=== PATIENT | male | born 1965 | race Caucasian/White ===

== ENCOUNTER → 2017-01-31 | Outpatient (CLI) | payer MEDICARE, MEDICAID ==
[~2017-01-31] MED LIST: COR3 PO; DIABETES MEDS; ENAL2.5T39 PO; GEMF600T3 PO; LISI-186 PO; LOSA1TAB34 PO; METF-816 PO; Metolazone PO; OMEP20CA10 PO; SIMV10TA6 PO; TRAM50TA3 PO; [UNRECOGNIZED DRUG - OTHER]
[2017-01-31 11:45] LABS: CARBON DIOXIDE 26 mEq/L (21-32); CHLORIDE 103 mEq/L (98-107)
== END | disposition home or self-care (01) ==
LOC: LAB 11:05
PROVIDERS: ATTEND Specialist
DX: E78.2 Mixed hyperlipidemia (principal)
CPT/HCPCS: 36415; 80053

== ENCOUNTER → 2019-07-02 | Outpatient (CLI) | payer MEDICARE, MEDICAID ==
[~2019-07-02] MED LIST changes: -GEMF600T3 PO; +GEMF600T5 PO; -OMEP20CA10 PO; +OMEP20CA5 PO
== END | disposition home or self-care (01) ==
LOC: US 10:39
PROVIDERS: ATTEND Internal Medicine Nephrology
DX: I12.0 Hypertensive chronic kidney disease with stage 5 chronic kidney disease or end stage renal disease (principal); E11.22 Type 2 diabetes mellitus with diabetic chronic kidney disease; N18.5 Chronic kidney disease, stage 5
CPT/HCPCS: 76770

== ENCOUNTER 2021-02-08 10:22 | Inpatient (IN) | payer MEDICARE, MEDICAID ==
[~2021-02-08] VITALS: Ht 165.1 cm; Wt 74.9 kg
[~2021-02-08 10:22] MED LIST changes: -GEMF600T5 PO; +GEMF600T90 PO; -METF-816 PO; +METF-874 PO; +OMEP20CA14 PO; -OMEP20CA5 PO; -SIMV10TA6 PO; +SIMV10TA97 PO
[2021-02-08 11:19] LABS: BASOPHILS % 1.1 % (0.0-2.0); EOSINOPHILS % 2.1 % (0.0-5.0); HEMATOCRIT. 29.1 % (42.0-52.0); HEMOGLOBIN. 9.5 g/dL (14.0-18.0); LYMPHOCYTES % 15.6 % (20.0-50.0); MEAN CORPUSCULAR VOLUME 100.7 fL (80.0-94.0); MONOCYTES % 9.8 % (2.0-8.0); NEUTROPHILS % 71.4 % (40.0-76.0); PLATELET 135 x1000/uL (130-400); RED BLOOD CELL COUNT 2.89 mill/uL (4.7-6.1); RED CELL DISTRIBUTION WIDTH 15.7 % (11.6-14.6)
[2021-02-08 11:26] LABS: CHLORIDE 109 mEq/L (98-107)
[2021-02-08] MEDS ORDERED: FUROSEMIDE 100MG/10ML VIAL IV STA (11:52)
[2021-02-08] MEDS ORDERED: DEXTROSE 50% WATER 50ML SYRINGE IV ONE (12:00)
[2021-02-08] MEDS ORDERED: INSULIN REGULAR (HUMULIN R) 300UNITS/3ML VIAL IV ONE (12:00)
[2021-02-08] MEDS ORDERED: ALBUTEROL (0.083%) 2.5MG/3ML NEB HHN ONE (12:00)
[2021-02-08] MEDS ORDERED: SODIUM BICARBONATE 8.4% 1 MEQ/ML 50ML SYR IV ONE (12:00)
[2021-02-08] MEDS ORDERED: CALCIUM CHLORIDE 1GM/10ML SYR IV ONE (12:00)
[2021-02-08] MEDS ORDERED: DEXTROSE 50% WATER 50ML SYRINGE IV PRN (13:00)
[2021-02-08] MEDS: INSULIN LISPRO 100 UNITS/ML SUBCUT SCH ×3 (13:20→21:00)
[2021-02-08 13:50] LABS: INR 3.8; PROTHROMBIN TIME 36.3 sec (9.6-11.0)
[2021-02-08] MEDS: BLOOD SUGAR DIAGNOSTIC STRIP TEST SCH ×3 (13:50→21:27)
[2021-02-08 15:11] LABS: HEPATITIS B SURFACE ANTIGEN NEGATIVE
[2021-02-08 15:41] LABS: HEPATITIS A AB IGM NEGATIVE (NEGATIVE)
[2021-02-08] MEDS ORDERED: CLONIDINE 0.1MG TABLET PO PRN (17:30)
[2021-02-08] MEDS ORDERED: IPRATROPIUM/ALBUTEROL 0.5-3(2.5)MG/3ML NEB HHN PRN (17:30)
[2021-02-08] MEDS ORDERED: ACETAMINOPHEN 325MG TABLET PO PRN (17:30)
[2021-02-08] MEDS ORDERED: DOCUSATE SODIUM 100MG CAPSULE PO PRN (17:30)
[2021-02-08] MEDS ORDERED: ONDANSETRON HCL 4MG/2ML INJ IV PRN (17:30)
[2021-02-08] MEDS ORDERED: MAGNESIUM/ALUMINUM HYDROXIDE/SIMETHICONE 30ML UDC PO PRN (17:30)
[2021-02-08] MEDS ORDERED: HYDROCODONE/ACETAMINOPHEN 5/325MG TABLET PO PRN (17:30)
[2021-02-08] MEDS: FUROSEMIDE 40MG/4ML VIAL IVP SCH (18:54)
[2021-02-08] MEDS ORDERED: SACUBITRIL/VALSARTAN 49MG/51MG TABLET PO SCH (21:00)
[2021-02-08] MEDS: ATORVASTATIN CALCIUM 40MG TABLET PO SCH (21:26)
[2021-02-08] MEDS: CARVEDILOL 3.125 MG TABLET PO SCH (21:26)
[2021-02-08] MEDS ORDERED: NALOXONE HCL 0.4MG/ML VIAL IV PRN (22:30)
[2021-02-09] VITALS (12 sets, daily range): BP systolic 87–126; BP diastolic 45–76
[2021-02-09] MEDS: OMEPRAZOLE 20MG CAPSULE EXTENDED RELEASE PO SCH (06:43)
[2021-02-09] MEDS: LEVOTHYROXINE SODIUM 25MCG TABLET PO SCH (06:43)
[2021-02-09] MEDS: BLOOD SUGAR DIAGNOSTIC STRIP TEST SCH ×4 (07:30→21:51)
[2021-02-09 07:34] LABS: BASOPHILS % 1.1 % (0.0-2.0); EOSINOPHILS % 1.8 % (0.0-5.0); HEMATOCRIT. 26.6 % (42.0-52.0); MEAN CORPUSCULAR HEMOGLOBIN 32.8 pg (28.0-32.0); MEAN CORPUSCULAR VOLUME 96.9 fL (80.0-94.0); MEAN PLATELET VOLUME 9.6 fl (7.4-10.4); MONOCYTES % 11.1 % (2.0-8.0); PLATELET 125 x1000/uL (130-400); RED BLOOD CELL COUNT 2.75 mill/uL (4.7-6.1); RED CELL DISTRIBUTION WIDTH 15.3 % (11.6-14.6)
[2021-02-09 07:41] LABS: INR 3.9; PROTHROMBIN TIME 37.2 sec (9.6-11.0)
[2021-02-09] MEDS: INSULIN LISPRO 100 UNITS/ML SUBCUT SCH ×4 (08:00→21:51)
[2021-02-09 08:04] LABS: PHOSPHORUS 2.4 mg/dL (2.5-4.9)
[2021-02-09 08:07] LABS: T4 FREE 1.47 ng/dL (0.76-1.46)
[2021-02-09] MEDS: CARVEDILOL 3.125 MG TABLET PO SCH ×2 (09:00→21:00)
[2021-02-09] MEDS: ASPIRIN 81MG TABLET PO SCH (09:41)
[2021-02-09] MEDS: FUROSEMIDE 40MG/4ML VIAL IVP SCH ×2 (09:43→18:02)
[2021-02-09] MEDS ORDERED: POTASSIUM PHOS,M-BASIC-D-BASIC 15 MMOL in DEXT 5% WATER 245 ML IV NR (12:30)
[2021-02-09] MEDS ORDERED: DORZ10DR12 EACHEYE (18:16)
[2021-02-09] MEDS ORDERED: ASPI-1497 PO (18:16)
[2021-02-09] MEDS ORDERED: REPA1TAB5 PO (18:16)
[2021-02-09] MEDS ORDERED: FURO-151 PO (18:16)
[2021-02-09] MEDS ORDERED: PATI8.4P PO (18:16)
[2021-02-09] MEDS ORDERED: ATOR20TA65 PO (18:16)
[2021-02-09] MEDS ORDERED: TAMS-11 PO (18:16)
[2021-02-09] MEDS ORDERED: SACU1TAB4 PO (18:16)
[2021-02-09] MEDS ORDERED: WARF-67 PO (18:16)
[2021-02-09] MEDS ORDERED: LEVO25TA7 PO (18:16)
[2021-02-09] MEDS ORDERED: OMEP40CA12 PO (18:16)
[2021-02-09] MEDS ORDERED: DUTA0.5C37 PO (18:16)
[2021-02-09] MEDS ORDERED: INSU100I24 SQ (18:16)
[2021-02-09] MEDS ORDERED: COR3 PO (18:16)
[2021-02-09] MEDS: ATORVASTATIN CALCIUM 40MG TABLET PO SCH (21:49)
[2021-02-10] VITALS (10 sets, daily range): BP systolic 72–137; BP diastolic 45–82
[2021-02-10 05:47] LABS: BASOPHILS % 1.1 % (0.0-2.0); EOSINOPHILS % 3.1 % (0.0-5.0); HEMATOCRIT. 26.8 % (42.0-52.0); HEMOGLOBIN. 8.9 g/dL (14.0-18.0); INR 2.8; LYMPHOCYTES % 22.1 % (20.0-50.0); MEAN CORPUSCULAR HEMOGLOBIN 32.6 pg (28.0-32.0); MEAN PLATELET VOLUME 10.1 fl (7.4-10.4); MONOCYTES % 14.2 % (2.0-8.0); NEUTROPHILS % 59.5 % (40.0-76.0); PLATELET 125 x1000/uL (130-400); PROTHROMBIN TIME 28.1 sec (9.6-11.0); RED BLOOD CELL COUNT 2.73 mill/uL (4.7-6.1); RED CELL DISTRIBUTION WIDTH 15.6 % (11.6-14.6)
[2021-02-10] MEDS: INSULIN LISPRO 100 UNITS/ML SUBCUT SCH ×4 (08:00→20:32)
[2021-02-10] MEDS: BLOOD SUGAR DIAGNOSTIC STRIP TEST SCH ×4 (08:09→20:32)
[2021-02-10] MEDS: OMEPRAZOLE 20MG CAPSULE EXTENDED RELEASE PO SCH (08:10)
[2021-02-10] MEDS: ASPIRIN 81MG TABLET PO SCH (08:10)
[2021-02-10] MEDS: LEVOTHYROXINE SODIUM 25MCG TABLET PO SCH (08:10)
[2021-02-10] MEDS: CARVEDILOL 3.125 MG TABLET PO SCH ×2 (08:10→20:32)
[2021-02-10] MEDS: FUROSEMIDE 40MG/4ML VIAL IVP SCH (08:10)
[2021-02-10] MEDS ORDERED: WARFARIN SODIUM 2MG TABLET PO SCH (18:00)
[2021-02-10] MEDS: ATORVASTATIN CALCIUM 40MG TABLET PO SCH (20:31)
[2021-02-11] VITALS (17 sets, daily range): BP systolic 96–143; BP diastolic 67–94
[2021-02-11 07:13] LABS: INR 1.7; PROTHROMBIN TIME 17.5 sec (9.6-11.0)
[2021-02-11 07:22] LABS: BASOPHILS % 0.9 % (0.0-2.0); HEMATOCRIT. 25.8 % (42.0-52.0); HEMOGLOBIN. 8.6 g/dL (14.0-18.0); MEAN CORPUSCULAR HEMOGLOBIN 33.3 pg (28.0-32.0); MEAN CORPUSCULAR VOLUME 99.5 fL (80.0-94.0); MEAN PLATELET VOLUME 9.9 fl (7.4-10.4); MONOCYTES % 12.3 % (2.0-8.0); NEUTROPHILS % 61.8 % (40.0-76.0); PLATELET 129 x1000/uL (130-400); RED BLOOD CELL COUNT 2.59 mill/uL (4.7-6.1); RED CELL DISTRIBUTION WIDTH 15.7 % (11.6-14.6)
[2021-02-11] MEDS: INSULIN LISPRO 100 UNITS/ML SUBCUT SCH ×4 (08:00→21:00)
[2021-02-11] MEDS: BLOOD SUGAR DIAGNOSTIC STRIP TEST SCH ×4 (08:01→21:57)
[2021-02-11] MEDS: LEVOTHYROXINE SODIUM 25MCG TABLET PO SCH (08:02)
[2021-02-11] MEDS: FAMOTIDINE 20MG TABLET PO SCH (08:02)
[2021-02-11] MEDS: CARVEDILOL 3.125 MG TABLET PO SCH ×2 (09:47→21:00)
[2021-02-11] MEDS: ATORVASTATIN CALCIUM 40MG TABLET PO SCH (22:05)
[2021-02-12] VITALS (11 sets, daily range): BP systolic 97–112; BP diastolic 63–77
[2021-02-12] MEDS: FAMOTIDINE 20MG TABLET PO SCH (06:34)
[2021-02-12] MEDS: LEVOTHYROXINE SODIUM 25MCG TABLET PO SCH (06:34)
[2021-02-12 07:02] LABS: INR 1.3; PROTHROMBIN TIME 14.1 sec (9.6-11.0)
[2021-02-12 07:11] LABS: BASOPHILS % 1.1 % (0.0-2.0); EOSINOPHILS % 2.1 % (0.0-5.0); HEMATOCRIT. 27.4 % (42.0-52.0); HEMOGLOBIN. 9.3 g/dL (14.0-18.0); LYMPHOCYTES % 16.8 % (20.0-50.0); MEAN CORPUSCULAR HEMOGLOBIN 33.1 pg (28.0-32.0); MEAN CORPUSCULAR VOLUME 97.9 fL (80.0-94.0); MEAN PLATELET VOLUME 9.5 fl (7.4-10.4); MONOCYTES % 10.7 % (2.0-8.0); NEUTROPHILS % 69.3 % (40.0-76.0); PLATELET 141 x1000/uL (130-400); RED CELL DISTRIBUTION WIDTH 15.3 % (11.6-14.6)
[2021-02-12] MEDS: INSULIN LISPRO 100 UNITS/ML SUBCUT SCH ×4 (08:00→20:48)
[2021-02-12] MEDS: BLOOD SUGAR DIAGNOSTIC STRIP TEST SCH ×4 (08:01→20:47)
[2021-02-12] MEDS: CARVEDILOL 3.125 MG TABLET PO SCH ×2 (08:51→20:48)
[2021-02-12] MEDS: ATORVASTATIN CALCIUM 40MG TABLET PO SCH (20:48)
[2021-02-12] MEDS ORDERED: LORAZEPAM 0.5MG TABLET PO PRN (22:00)
[2021-02-12] MEDS: ZOLPIDEM TARTRATE 5MG TABLET PO PRN (22:02)
[2021-02-13] VITALS (19 sets, daily range): BP systolic 91–121; BP diastolic 62–83
[2021-02-13] MEDS ORDERED: DIAZEPAM 5 MG TABLET PO SCH ×2 (05:00→12:17)
[2021-02-13 06:30] LABS: BASOPHILS % 0.8 % (0.0-2.0); EOSINOPHILS % 2.4 % (0.0-5.0); HEMATOCRIT. 29.7 % (42.0-52.0); HEMOGLOBIN. 9.8 g/dL (14.0-18.0); LYMPHOCYTES % 17.5 % (20.0-50.0); MEAN CORPUSCULAR HEMOGLOBIN 32.5 pg (28.0-32.0); MEAN CORPUSCULAR VOLUME 98.8 fL (80.0-94.0); MEAN PLATELET VOLUME 9.9 fl (7.4-10.4); MONOCYTES % 10.1 % (2.0-8.0); NEUTROPHILS % 69.2 % (40.0-76.0); PLATELET 143 x1000/uL (130-400); RED BLOOD CELL COUNT 3.01 mill/uL (4.7-6.1)
[2021-02-13 06:38] LABS: INR 1.2; PROTHROMBIN TIME 12.9 sec (9.6-11.0)
[2021-02-13] MEDS: LEVOTHYROXINE SODIUM 25MCG TABLET PO SCH (07:55)
[2021-02-13] MEDS: FAMOTIDINE 20MG TABLET PO SCH (07:55)
[2021-02-13] MEDS: INSULIN LISPRO 100 UNITS/ML SUBCUT SCH ×4 (08:00→20:53)
[2021-02-13] MEDS: BLOOD SUGAR DIAGNOSTIC STRIP TEST SCH ×4 (08:04→21:00)
[2021-02-13] MEDS: CARVEDILOL 3.125 MG TABLET PO SCH ×2 (09:13→20:54)
[2021-02-13] MEDS ORDERED: CEFAZOLIN 1000MG PREMIX 50 ML IV NR (12:15)
[2021-02-13] MEDS ORDERED: CEFAZOLIN 1000MG PREMIX 50 ML IV ONE (13:06)
[2021-02-13] MEDS ORDERED: LIDOCAINE HCL 1% 20ML VIAL (Pyxis) INJ ONE (13:10)
[2021-02-13] MEDS ORDERED: HEPARIN 1000 UNITS/ML 10ML ONE (13:10)
[2021-02-13] MEDS ORDERED: FENTANYL CITRATE/PF 50MCG/ML 2ML VIAL ONE (14:17)
[2021-02-13] MEDS ORDERED: FENTANYL CITRATE/PF 50MCG/ML 2ML VIAL IV ONE (14:30)
[2021-02-13] MEDS ORDERED: WARFARIN SODIUM 4MG TABLET PO NR (18:00)
[2021-02-13] MEDS: ZOLPIDEM TARTRATE 5MG TABLET PO PRN (20:54)
[2021-02-13] MEDS: ATORVASTATIN CALCIUM 40MG TABLET PO SCH (20:54)
[2021-02-14] VITALS (8 sets, daily range): BP systolic 88–115; BP diastolic 59–75
[2021-02-14 06:01] LABS: INR 1.2; PROTHROMBIN TIME 12.5 sec (9.6-11.0)
[2021-02-14] MEDS: INSULIN LISPRO 100 UNITS/ML SUBCUT SCH ×4 (08:00→20:20)
[2021-02-14] MEDS: LEVOTHYROXINE SODIUM 25MCG TABLET PO SCH (08:19)
[2021-02-14] MEDS: FAMOTIDINE 20MG TABLET PO SCH (08:20)
[2021-02-14] MEDS: CARVEDILOL 3.125 MG TABLET PO SCH ×2 (08:20→20:38)
[2021-02-14] MEDS: BLOOD SUGAR DIAGNOSTIC STRIP TEST SCH ×4 (08:22→20:20)
[2021-02-14] MEDS ORDERED: WARFARIN SODIUM 4MG TABLET PO NR ×2 (11:15→18:00)
[2021-02-14] MEDS: ZOLPIDEM TARTRATE 5MG TABLET PO PRN (20:35)
[2021-02-14] MEDS: ATORVASTATIN CALCIUM 40MG TABLET PO SCH (20:35)
[2021-02-15] VITALS (7 sets, daily range): BP systolic 89–112; BP diastolic 37–79
[2021-02-15 05:51] LABS: INR 1.3; PROTHROMBIN TIME 13.4 sec (9.6-11.0)
[2021-02-15 06:19] LABS: BASOPHILS % 0.7 % (0.0-2.0); HEMATOCRIT. 27.4 % (42.0-52.0); HEMOGLOBIN. 8.9 g/dL (14.0-18.0); LYMPHOCYTES % 17.1 % (20.0-50.0); MEAN CORPUSCULAR HEMOGLOBIN 32.7 pg (28.0-32.0); MEAN CORPUSCULAR VOLUME 100.9 fL (80.0-94.0); MEAN PLATELET VOLUME 9.5 fl (7.4-10.4); MONOCYTES % 12.9 % (2.0-8.0); NEUTROPHILS % 67.3 % (40.0-76.0); PLATELET 129 x1000/uL (130-400); RED BLOOD CELL COUNT 2.72 mill/uL (4.7-6.1); RED CELL DISTRIBUTION WIDTH 15.5 % (11.6-14.6)
[2021-02-15] MEDS: BLOOD SUGAR DIAGNOSTIC STRIP TEST SCH ×3 (07:30→17:55)
[2021-02-15] MEDS: INSULIN LISPRO 100 UNITS/ML SUBCUT SCH ×3 (08:00→17:56)
[2021-02-15] MEDS: FAMOTIDINE 20MG TABLET PO SCH (08:48)
[2021-02-15] MEDS: LEVOTHYROXINE SODIUM 25MCG TABLET PO SCH (08:48)
[2021-02-15] MEDS: CARVEDILOL 3.125 MG TABLET PO SCH (08:49)
[2021-02-15] MEDS ORDERED: WARFARIN SODIUM 5MG TABLET PO SCH (18:00)
== END 2021-02-15 21:03 | disposition home or self-care (01) | DRG 673 ==
LOC: ER 10:22 → MICUSO 12:58 → EDBEDREQTM 13:02 → EDBEDREQ 13:02 → 5EST 22:09
PROVIDERS: ADMIT Family Medicine Adult Medicine; ATTEND Family Medicine Adult Medicine
PROC: 02H633Z Insertion of Infusion Device into Right Atrium, Percutaneous Approach (ICD-10-PCS; principal; 2021-02-08)
PROC: 5A1D70Z Performance of Urinary Filtration, Intermittent, Less than 6 Hours Per Day (ICD-10-PCS; 2021-02-08)
PROC: 5A1D70Z Performance of Urinary Filtration, Intermittent, Less than 6 Hours Per Day (ICD-10-PCS; 2021-02-09)
PROC: 5A1D70Z Performance of Urinary Filtration, Intermittent, Less than 6 Hours Per Day (ICD-10-PCS; 2021-02-11)
PROC: 0JH63XZ Insertion of Tunneled Vascular Access Device into Chest Subcutaneous Tissue and Fascia, Percutaneous Approach (ICD-10-PCS; 2021-02-13)
PROC: 02PAX3Z Removal of Infusion Device from Heart, External Approach (ICD-10-PCS; 2021-02-13)
PROC: 02H633Z Insertion of Infusion Device into Right Atrium, Percutaneous Approach (ICD-10-PCS; 2021-02-13)
PROC: B518ZZA Fluoroscopy of Superior Vena Cava, Guidance (ICD-10-PCS; 2021-02-13)
PROC: 5A1D70Z Performance of Urinary Filtration, Intermittent, Less than 6 Hours Per Day (ICD-10-PCS; 2021-02-14)
DX: N17.9 Acute kidney failure, unspecified (principal); I50.23 Acute on chronic systolic (congestive) heart failure; I13.0 Hypertensive heart and chronic kidney disease with heart failure and stage 1 through stage 4 chronic kidney disease, or unspecified chronic kidney disease; E44.0 Moderate protein-calorie malnutrition; I31.3 Pericardial effusion (noninflammatory); E87.2 Acidosis; I42.9 Cardiomyopathy, unspecified; E87.5 Hyperkalemia; I51.3 Intracardiac thrombosis, not elsewhere classified; I48.0 Paroxysmal atrial fibrillation; E03.9 Hypothyroidism, unspecified; I27.21 Secondary pulmonary arterial hypertension; I25.10 Atherosclerotic heart disease of native coronary artery without angina pectoris; Z20.822 Contact with and (suspected) exposure to COVID-19; E11.22 Type 2 diabetes mellitus with diabetic chronic kidney disease; N18.9 Chronic kidney disease, unspecified; I36.1 Nonrheumatic tricuspid (valve) insufficiency; D64.9 Anemia, unspecified; E83.39 Other disorders of phosphorus metabolism; Z95.810 Presence of automatic (implantable) cardiac defibrillator; Z79.899 Other long term (current) drug therapy; Z79.01 Long term (current) use of anticoagulants; Z68.27 Body mass index [BMI] 27.0-27.9, adult; Z79.4 Long term (current) use of insulin; Z79.82 Long term (current) use of aspirin; I34.0 Nonrheumatic mitral (valve) insufficiency; I25.2 Old myocardial infarction
CPT/HCPCS: 36415; 36556; 36558; 36589; 71045; 76937; 77001; 80048; 80053; 80061; 80076; 82962; 83036; 83735; 83880; 84100; 84439; 84443; 84484; 85025; 86705; 86706; 86709; 86803; 87340; 87426; 93005; 93306; 93970; 94644; 97116; 97162; 99152; 99153; 99291; C1750; C1752; J0690; J1644; J1815; J1940; J2405; J3010; J3490; J7040; J7060; U0003; U0005; G0500

== ENCOUNTER 2021-04-06 16:25 | Emergency (ER) | payer MEDICARE, MEDICAID ==
[~2021-04-06] VITALS: Ht 157.5 cm; Wt 75.0 kg
[~2021-04-06 16:25] MED LIST changes: +ASPI-1497 PO; +ATOR20TA65 PO; -DIABETES MEDS; +DORZ10DR12 EACHEYE; +DUTA0.5C37 PO; -ENAL2.5T39 PO; +FURO-151 PO; -GEMF600T90 PO; +INSU100I24 SQ; +LEVO25TA7 PO; -LISI-186 PO; -LOSA1TAB34 PO; -METF-874 PO; -Metolazone PO; -OMEP20CA14 PO; +OMEP40CA20 PO; +PATI8.4P PO; +REPA1TAB5 PO; +SACU1TAB4 PO; -SIMV10TA97 PO; +TAMS-11 PO; -TRAM50TA3 PO; +WARF-67 PO; -[UNRECOGNIZED DRUG - OTHER]
[2021-04-06 17:38] LABS: HEMATOCRIT. 29.3 % (42.0-52.0); HEMOGLOBIN. 9.6 g/dL (14.0-18.0); MEAN CORPUSCULAR HEMOGLOBIN 33.3 pg (28.0-32.0); MEAN PLATELET VOLUME 9.7 fl (7.4-10.4); PLATELET 154 x1000/uL (130-400); RED BLOOD CELL COUNT 2.87 mill/uL (4.7-6.1); RED CELL DISTRIBUTION WIDTH 15.8 % (11.6-14.6)
[2021-04-06 17:44] LABS: CHLORIDE 105 mEq/L (98-107)
[2021-04-06 17:48] LABS: INR 1.7; PROTHROMBIN TIME 17.6 sec (9.6-11.0)
[2021-04-06 18:09] LABS: PLATELET ESTIMATE NORMAL
[2021-04-06 18:20] VITALS: BP 115/75
== END 2021-04-06 18:18 | disposition home or self-care (01) ==
LOC: ER 16:25
DX: D63.1 Anemia in chronic kidney disease (principal); I13.11 Hypertensive heart and chronic kidney disease without heart failure, with stage 5 chronic kidney disease, or end stage renal disease; E11.22 Type 2 diabetes mellitus with diabetic chronic kidney disease; N18.6 End stage renal disease; I48.91 Unspecified atrial fibrillation; I42.9 Cardiomyopathy, unspecified; I25.10 Atherosclerotic heart disease of native coronary artery without angina pectoris; I25.2 Old myocardial infarction; E03.9 Hypothyroidism, unspecified; I27.20 Pulmonary hypertension, unspecified; Z95.0 Presence of cardiac pacemaker; Z99.2 Dependence on renal dialysis; Z79.4 Long term (current) use of insulin; Z79.01 Long term (current) use of anticoagulants; Z79.82 Long term (current) use of aspirin; Z92.29 Personal history of other drug therapy
CPT/HCPCS: 36415; 80053; 85025; 86850; 86900; 99283

== ENCOUNTER 2021-05-26 05:48 | Inpatient (IN) | payer MEDICARE, MEDICAID ==
[2021-05-26] VITALS (29 sets, daily range): BP systolic 75–121; BP diastolic 34–65
[~2021-05-26] VITALS: Ht 182.9 cm; Wt 73.6 kg
[2021-05-26] MEDS ORDERED: VANCOMYCIN 1 G PREMIX 200 ML IV ONE (06:30)
[2021-05-26] MEDS ORDERED: PIPERACILLIN/TAZ 3.375G PREMIX 50 ML IV ONE (06:30)
[2021-05-26] MEDS ORDERED: SODIUM CHLORIDE 0.9% 1000ML BAG (SEPSIS BOLUS) IV ONE (06:30)
[2021-05-26 06:44] LABS: BASOPHILS % 0.8 % (0.0-2.0); EOSINOPHILS % 2.2 % (0.0-5.0); HEMOGLOBIN. 9.2 g/dL (14.0-18.0); LYMPHOCYTES % 19.4 % (20.0-50.0); MEAN CORPUSCULAR VOLUME 101.1 fL (80.0-94.0); MEAN PLATELET VOLUME 9.4 fl (7.4-10.4); MONOCYTES % 11.8 % (2.0-8.0); NEUTROPHILS % 65.8 % (40.0-76.0); PLATELET 218 x1000/uL (130-400); RED BLOOD CELL COUNT 2.87 mill/uL (4.7-6.1)
[2021-05-26 06:47] LABS: CHLORIDE 99 mEq/L (98-107)
[2021-05-26] MEDS ORDERED: SODIUM POLYSTYRENE SULFONATE 15 G/60 ML BOT PO ONE (08:00)
[2021-05-26] MEDS ORDERED: SODIUM BICARBONATE 8.4% 1 MEQ/ML 50ML SYR IV ONE (08:00)
[2021-05-26] MEDS ORDERED: ALBUTEROL (0.083%) 2.5MG/3ML NEB HHN ONE (08:00)
[2021-05-26] MEDS ORDERED: PHENYLEPHRINE 100 MG in DEXT 5% WATER 240 ML IV STA (09:13)
[2021-05-26] MEDS ORDERED: PHENYLEPHRINE 100 MG in DEXT 5% WATER 240 ML IV PRN (09:30)
[2021-05-26 10:26] LABS: PARTIAL THROMBOPLASTIN TIME 69.2 sec (23.4-31.0); PROTHROMBIN TIME 71.1 sec (9.6-11.0)
[2021-05-26 10:34] LABS: INR 7.8
[2021-05-26 13:10] LABS: CLARITY URINE TURBID (CLEAR); COLOR URINE DARK YELLOW (YELLOW); KETONES URINE TRACE (NEGATIVE); LEUKOCYTE ESTERASE URINE 3+ (NEGATIVE); NITRITE URINE NEGATIVE (NEGATIVE); OCCULT BLOOD URINE 2+ (NEGATIVE); PH URINE 6.5 (4.5-8.0); PROTEIN URINE 3+ (NEGATIVE); SPECIFIC GRAVITY URINE 1.017 (1.005-1.030); UROBILINOGEN URINE 0.2 E.U./dL (0.2-1.0)
[2021-05-26] MEDS ORDERED: MAGNESIUM/ALUMINUM HYDROXIDE/SIMETHICONE 30ML UDC PO PRN (16:30)
[2021-05-26] MEDS ORDERED: IPRATROPIUM/ALBUTEROL 0.5-3(2.5)MG/3ML NEB HHN PRN (16:30)
[2021-05-26] MEDS ORDERED: HYDROCODONE/ACETAMINOPHEN 5/325MG TABLET PO PRN (16:30)
[2021-05-26] MEDS ORDERED: ACETAMINOPHEN 325MG TABLET PO PRN (16:30)
[2021-05-26] MEDS ORDERED: ONDANSETRON HCL 4MG/2ML INJ IV PRN (16:30)
[2021-05-26] MEDS ORDERED: DEXTROSE 50% WATER 50ML SYRINGE IV PRN ×2 (16:30)
[2021-05-26] MEDS ORDERED: CLONIDINE 0.1MG TABLET PO PRN (16:30)
[2021-05-26] MEDS ORDERED: DOCUSATE SODIUM 100MG CAPSULE PO PRN (16:30)
[2021-05-26] MEDS: INSULIN LISPRO 100 UNITS/ML SUBCUT SCH ×2 (17:00→20:44)
[2021-05-26] MEDS: BLOOD SUGAR DIAGNOSTIC STRIP TEST SCH ×2 (17:00→20:44)
[2021-05-27] VITALS (96 sets, daily range): BP systolic 66–126; BP diastolic 30–84
[2021-05-27 06:00] LABS: BASOPHILS % 0.6 % (0.0-2.0); EOSINOPHILS % 0.7 % (0.0-5.0); LYMPHOCYTES % 15.1 % (20.0-50.0); MEAN PLATELET VOLUME 9.5 fl (7.4-10.4); MONOCYTES % 11.7 % (2.0-8.0); NEUTROPHILS % 71.9 % (40.0-76.0); PLATELET 289 x1000/uL (130-400); RED BLOOD CELL COUNT 3.42 mill/uL (4.7-6.1); RED CELL DISTRIBUTION WIDTH 15.7 % (11.6-14.6)
[2021-05-27] MEDS: BLOOD SUGAR DIAGNOSTIC STRIP TEST SCH ×4 (06:23→21:30)
[2021-05-27] MEDS: INSULIN LISPRO 100 UNITS/ML SUBCUT SCH ×4 (06:24→21:00)
[2021-05-27 06:29] LABS: PHOSPHORUS 4.9 mg/dL (2.5-4.9)
[2021-05-27 06:32] LABS: T4 FREE 1.53 ng/dL (0.76-1.46)
[2021-05-27 06:59] LABS: HEMATOCRIT. 34.1 % (42.0-52.0); HEMOGLOBIN. 10.9 g/dL (14.0-18.0)
[2021-05-27] MEDS ORDERED: FENTANYL CITRATE/PF 2,500 MCG in SODIUM CHLORIDE 0.9% 200 ML IV PRN (09:45)
[2021-05-27] MEDS: PANTOPRAZOLE SODIUM 40 MG/VIAL IV SCH (09:48)
[2021-05-27 13:18] LABS: PROTHROMBIN TIME 62.2 sec (9.6-11.0)
[2021-05-27] MEDS ORDERED: NALOXONE HCL 0.4MG/ML VIAL IV PRN (13:45)
[2021-05-27] MEDS: DILTIAZEM HCL 30MG TABLET PO SCH ×2 (14:00→21:30)
[2021-05-27 14:24] LABS: *COCAINE SCREEN URINE NEGATIVE (NEGATIVE); METHADONE URINE SCREEN NEGATIVE (NEGATIVE); OPIATES URINE SCREEN PRESUMTIVE POSITIVE (NEGATIVE)
[2021-05-27 14:25] LABS: *AMPHETAMINES SCREEN URINE NEGATIVE (NEGATIVE); *BARBITURATES SCREEN URINE NEGATIVE (NEGATIVE); *BENZODIAZEPINES SCREEN URINE NEGATIVE (NEGATIVE); CANNABINOID URINE SCREEN NEGATIVE (NEGATIVE); PHENCYCLIDINE URINE SCREEN NEGATIVE (NEGATIVE)
[2021-05-27 14:33] LABS: INR 6.7
[2021-05-27] MEDS: MIDODRINE HCL 5MG TABLET PO SCH (17:17)
[2021-05-28] VITALS (93 sets, daily range): BP systolic 65–156; BP diastolic 26–98
[2021-05-28] MEDS: PHENYLEPHRINE 100 MG in DEXT 5% WATER 240 ML IV PRN (02:27)
[2021-05-28 04:44] LABS: BASOPHILS % 0.9 % (0.0-2.0); EOSINOPHILS % 1.3 % (0.0-5.0); HEMOGLOBIN. 10.7 g/dL (14.0-18.0); LYMPHOCYTES % 16.8 % (20.0-50.0); MEAN CORPUSCULAR HEMOGLOBIN 30.7 pg (28.0-32.0); MEAN CORPUSCULAR VOLUME 100.1 fL (80.0-94.0); MEAN PLATELET VOLUME 9.7 fl (7.4-10.4); MONOCYTES % 10.4 % (2.0-8.0); NEUTROPHILS % 70.6 % (40.0-76.0); PLATELET 305 x1000/uL (130-400); RED BLOOD CELL COUNT 3.49 mill/uL (4.7-6.1); RED CELL DISTRIBUTION WIDTH 16.1 % (11.6-14.6)
[2021-05-28 06:00] LABS: PROTHROMBIN TIME 82.3 sec (9.6-11.0)
[2021-05-28] MEDS: DILTIAZEM HCL 30MG TABLET PO SCH (06:00)
[2021-05-28 06:50] LABS: INR 9.2
[2021-05-28] MEDS: INSULIN LISPRO 100 UNITS/ML SUBCUT SCH ×4 (07:00→21:21)
[2021-05-28] MEDS: BLOOD SUGAR DIAGNOSTIC STRIP TEST SCH ×4 (07:00→21:16)
[2021-05-28] MEDS ORDERED: PHYTONADIONE 10MG/ML AMP SUBCUT NR (07:30)
[2021-05-28] MEDS: MIDODRINE HCL 5MG TABLET PO SCH ×2 (08:24→17:10)
[2021-05-28] MEDS: PANTOPRAZOLE SODIUM 40 MG/VIAL IV SCH (08:24)
[2021-05-28] MEDS ORDERED: PHYTONADIONE 10MG/ML AMP SUBCUT SCH (10:00)
[2021-05-28] MEDS: DILTIAZEM HCL 60MG TABLET PO SCH ×2 (14:06→21:21)
[2021-05-28 17:10] LABS: HEPATITIS B SURFACE ANTIGEN NEGATIVE
[2021-05-29] VITALS (99 sets, daily range): BP systolic 72–163; BP diastolic 28–105
[2021-05-29 05:55] LABS: BASOPHILS % 0.5 % (0.0-2.0); EOSINOPHILS % 0.4 % (0.0-5.0); HEMATOCRIT. 32.3 % (42.0-52.0); HEMOGLOBIN. 10.2 g/dL (14.0-18.0); LYMPHOCYTES % 12.2 % (20.0-50.0); MEAN CORPUSCULAR HEMOGLOBIN 32.3 pg (28.0-32.0); MEAN CORPUSCULAR VOLUME 102.5 fL (80.0-94.0); MEAN PLATELET VOLUME 9.1 fl (7.4-10.4); MONOCYTES % 13.6 % (2.0-8.0); NEUTROPHILS % 73.3 % (40.0-76.0); PLATELET 241 x1000/uL (130-400); RED BLOOD CELL COUNT 3.15 mill/uL (4.7-6.1); RED CELL DISTRIBUTION WIDTH 16.7 % (11.6-14.6)
[2021-05-29 05:58] LABS: PROTHROMBIN TIME 51.7 sec (9.6-11.0)
[2021-05-29] MEDS: PHENYLEPHRINE 100 MG in DEXT 5% WATER 240 ML IV PRN (06:50)
[2021-05-29] MEDS: DILTIAZEM HCL 60MG TABLET PO SCH (06:52)
[2021-05-29] MEDS: BLOOD SUGAR DIAGNOSTIC STRIP TEST SCH ×4 (07:23→21:07)
[2021-05-29 07:31] LABS: INR 5.5
[2021-05-29] MEDS: MIDODRINE HCL 5MG TABLET PO SCH ×3 (07:53→21:16)
[2021-05-29] MEDS: PANTOPRAZOLE SODIUM 40 MG/VIAL IV SCH (07:53)
[2021-05-29] MEDS: INSULIN LISPRO 100 UNITS/ML SUBCUT SCH ×4 (07:56→21:18)
[2021-05-29] MEDS: FLUDROCORTISONE ACETATE 0.1MG TABLET PO SCH (10:34)
[2021-05-29] MEDS: DILTIAZEM HCL 30MG TABLET PO SCH ×2 (13:49→21:16)
[2021-05-30] VITALS (98 sets, daily range): BP systolic 80–158; BP diastolic 34–109
[2021-05-30] MEDS: MIDODRINE HCL 5MG TABLET PO SCH ×3 (05:58→21:22)
[2021-05-30] MEDS: DILTIAZEM HCL 30MG TABLET PO SCH (05:59)
[2021-05-30 06:15] LABS: INR 2.2; PROTHROMBIN TIME 21.9 sec (9.6-11.0)
[2021-05-30 06:18] LABS: BASOPHILS % 0.9 % (0.0-2.0); EOSINOPHILS % 1.3 % (0.0-5.0); HEMATOCRIT. 34.2 % (42.0-52.0); HEMOGLOBIN. 10.8 g/dL (14.0-18.0); LYMPHOCYTES % 22.1 % (20.0-50.0); MEAN CORPUSCULAR HEMOGLOBIN 31.5 pg (28.0-32.0); MEAN CORPUSCULAR VOLUME 99.8 fL (80.0-94.0); MEAN PLATELET VOLUME 9.2 fl (7.4-10.4); MONOCYTES % 14.1 % (2.0-8.0); NEUTROPHILS % 61.6 % (40.0-76.0); PLATELET 265 x1000/uL (130-400); RED BLOOD CELL COUNT 3.43 mill/uL (4.7-6.1); RED CELL DISTRIBUTION WIDTH 16.3 % (11.6-14.6)
[2021-05-30] MEDS: BLOOD SUGAR DIAGNOSTIC STRIP TEST SCH ×4 (08:01→21:18)
[2021-05-30] MEDS: INSULIN LISPRO 100 UNITS/ML SUBCUT SCH ×4 (08:02→21:22)
[2021-05-30] MEDS: FLUDROCORTISONE ACETATE 0.1MG TABLET PO SCH (08:40)
[2021-05-30] MEDS: PANTOPRAZOLE SODIUM 40 MG/VIAL IV SCH (08:40)
[2021-05-30] MEDS: PHENYLEPHRINE 100 MG in DEXT 5% WATER 240 ML IV PRN (13:24)
[2021-05-30] MEDS ORDERED: WARFARIN SODIUM 3MG TABLET PO NR (18:00)
[2021-05-31] VITALS (86 sets, daily range): BP systolic 79–149; BP diastolic 34–111
[2021-05-31 06:06] LABS: BASOPHILS % 0.6 % (0.0-2.0); EOSINOPHILS % 1.8 % (0.0-5.0); HEMATOCRIT. 32.9 % (42.0-52.0); HEMOGLOBIN. 10.4 g/dL (14.0-18.0); LYMPHOCYTES % 15.2 % (20.0-50.0); MEAN CORPUSCULAR VOLUME 101.1 fL (80.0-94.0); MEAN PLATELET VOLUME 8.9 fl (7.4-10.4); MONOCYTES % 13.8 % (2.0-8.0); NEUTROPHILS % 68.6 % (40.0-76.0); PLATELET 252 x1000/uL (130-400); RED BLOOD CELL COUNT 3.26 mill/uL (4.7-6.1); RED CELL DISTRIBUTION WIDTH 16.6 % (11.6-14.6)
[2021-05-31 06:36] LABS: INR 1.7; PROTHROMBIN TIME 17.5 sec (9.6-11.0)
[2021-05-31] MEDS: MIDODRINE HCL 5MG TABLET PO SCH ×3 (06:43→21:02)
[2021-05-31] MEDS: BLOOD SUGAR DIAGNOSTIC STRIP TEST SCH ×4 (07:56→20:55)
[2021-05-31] MEDS: INSULIN LISPRO 100 UNITS/ML SUBCUT SCH ×4 (07:56→21:01)
[2021-05-31] MEDS: FLUDROCORTISONE ACETATE 0.1MG TABLET PO SCH (08:37)
[2021-05-31] MEDS: PANTOPRAZOLE SODIUM 40 MG/VIAL IV SCH (08:37)
[2021-05-31] MEDS ORDERED: WARFARIN SODIUM 3MG TABLET PO NR (18:00)
[2021-05-31] MEDS: ATORVASTATIN CALCIUM 20MG TABLET PO SCH (21:01)
[2021-06-01] VITALS (13 sets, daily range): BP systolic 109–142; BP diastolic 52–82
[2021-06-01] MEDS: MIDODRINE HCL 5MG TABLET PO SCH ×3 (05:42→21:14)
[2021-06-01 06:00] LABS: INR 1.9
[2021-06-01 06:20] LABS: BASOPHILS % 0.7 % (0.0-2.0); EOSINOPHILS % 2.9 % (0.0-5.0); HEMATOCRIT. 30.9 % (42.0-52.0); LYMPHOCYTES % 15.6 % (20.0-50.0); MEAN CORPUSCULAR HEMOGLOBIN 31.9 pg (28.0-32.0); MEAN CORPUSCULAR VOLUME 98.8 fL (80.0-94.0); MEAN PLATELET VOLUME 9.2 fl (7.4-10.4); MONOCYTES % 12.4 % (2.0-8.0); NEUTROPHILS % 68.4 % (40.0-76.0); PLATELET 229 x1000/uL (130-400); RED BLOOD CELL COUNT 3.13 mill/uL (4.7-6.1); RED CELL DISTRIBUTION WIDTH 15.9 % (11.6-14.6)
[2021-06-01] MEDS: BLOOD SUGAR DIAGNOSTIC STRIP TEST SCH ×4 (07:39→21:00)
[2021-06-01] MEDS: INSULIN LISPRO 100 UNITS/ML SUBCUT SCH ×4 (07:39→21:14)
[2021-06-01] MEDS: FLUDROCORTISONE ACETATE 0.1MG TABLET PO SCH (08:01)
[2021-06-01] MEDS: PANTOPRAZOLE SODIUM 40 MG/VIAL IV SCH (08:01)
[2021-06-01] MEDS ORDERED: WARFARIN SODIUM 3MG TABLET PO SCH (18:00)
[2021-06-01] MEDS: ATORVASTATIN CALCIUM 20MG TABLET PO SCH (21:11)
[2021-06-02] VITALS (12 sets, daily range): BP systolic 95–144; BP diastolic 56–97
[2021-06-02] MEDS: MIDODRINE HCL 5MG TABLET PO SCH ×3 (05:54→21:21)
[2021-06-02 06:47] LABS: INR 2.5; PROTHROMBIN TIME 24.9 sec (9.6-11.0)
[2021-06-02] MEDS: BLOOD SUGAR DIAGNOSTIC STRIP TEST SCH ×4 (08:09→21:16)
[2021-06-02] MEDS: FLUDROCORTISONE ACETATE 0.1MG TABLET PO SCH (08:20)
[2021-06-02] MEDS: FAMOTIDINE 20MG/2ML VIAL IV SCH (08:20)
[2021-06-02] MEDS: INSULIN LISPRO 100 UNITS/ML SUBCUT SCH ×4 (08:21→21:00)
[2021-06-02] MEDS ORDERED: DIGOXIN 500MCG/2ML AMP IV SCH (13:45)
[2021-06-02] MEDS: ATORVASTATIN CALCIUM 20MG TABLET PO SCH (21:19)
[2021-06-03] VITALS (10 sets, daily range): BP systolic 105–128; BP diastolic 38–76
[2021-06-03] MEDS: MIDODRINE HCL 5MG TABLET PO SCH ×2 (06:06→14:46)
[2021-06-03 07:25] LABS: INR 2.8; PROTHROMBIN TIME 27.5 sec (9.6-11.0)
[2021-06-03 07:30] LABS: BASOPHILS % 0.8 % (0.0-2.0); EOSINOPHILS % 2.1 % (0.0-5.0); HEMATOCRIT. 29.4 % (42.0-52.0); HEMOGLOBIN. 9.6 g/dL (14.0-18.0); LYMPHOCYTES % 16.6 % (20.0-50.0); MEAN CORPUSCULAR HEMOGLOBIN 32.6 pg (28.0-32.0); MEAN CORPUSCULAR VOLUME 100.2 fL (80.0-94.0); MEAN PLATELET VOLUME 8.9 fl (7.4-10.4); NEUTROPHILS % 67.5 % (40.0-76.0); PLATELET 199 x1000/uL (130-400); RED BLOOD CELL COUNT 2.94 mill/uL (4.7-6.1); RED CELL DISTRIBUTION WIDTH 16.6 % (11.6-14.6)
[2021-06-03] MEDS: BLOOD SUGAR DIAGNOSTIC STRIP TEST SCH ×2 (07:30→13:11)
[2021-06-03] MEDS: INSULIN LISPRO 100 UNITS/ML SUBCUT SCH ×2 (08:00→13:00)
[2021-06-03] MEDS: FAMOTIDINE 20MG/2ML VIAL IV SCH (09:28)
[2021-06-04] MEDS ORDERED: FAMOTIDINE 20MG TABLET PO SCH (09:00)
== END 2021-06-03 18:00 | disposition home health service (06) | DRG 871 ==
LOC: ER 05:48 → MICUSO 09:13 → ENRESERV 13:42 → CVICU 05-28 11:00 → 5EST 05-31 21:58
PROVIDERS: ADMIT Family Medicine Adult Medicine; ATTEND Family Medicine Adult Medicine
PROC: 02HV33Z Insertion of Infusion Device into Superior Vena Cava, Percutaneous Approach (ICD-10-PCS; principal; 2021-05-26)
PROC: B548ZZA Ultrasonography of Superior Vena Cava, Guidance (ICD-10-PCS; 2021-05-26)
PROC: 5A1D70Z Performance of Urinary Filtration, Intermittent, Less than 6 Hours Per Day (ICD-10-PCS; 2021-05-30)
PROC: 5A1D70Z Performance of Urinary Filtration, Intermittent, Less than 6 Hours Per Day (ICD-10-PCS; 2021-06-01)
PROC: 5A1D70Z Performance of Urinary Filtration, Intermittent, Less than 6 Hours Per Day (ICD-10-PCS; 2021-06-03)
DX: A41.9 Sepsis, unspecified organism (principal); N18.6 End stage renal disease; R57.0 Cardiogenic shock; E44.0 Moderate protein-calorie malnutrition; I13.2 Hypertensive heart and chronic kidney disease with heart failure and with stage 5 chronic kidney disease, or end stage renal disease; N39.0 Urinary tract infection, site not specified; I48.19 Other persistent atrial fibrillation; D64.9 Anemia, unspecified; E03.9 Hypothyroidism, unspecified; I51.3 Intracardiac thrombosis, not elsewhere classified; I27.21 Secondary pulmonary arterial hypertension; E87.5 Hyperkalemia; I50.9 Heart failure, unspecified; E11.22 Type 2 diabetes mellitus with diabetic chronic kidney disease; I25.10 Atherosclerotic heart disease of native coronary artery without angina pectoris; Z20.822 Contact with and (suspected) exposure to COVID-19; I34.0 Nonrheumatic mitral (valve) insufficiency; E78.5 Hyperlipidemia, unspecified; I25.5 Ischemic cardiomyopathy; I25.2 Old myocardial infarction; Z79.01 Long term (current) use of anticoagulants; Z86.718 Personal history of other venous thrombosis and embolism; Z95.5 Presence of coronary angioplasty implant and graft; Z95.810 Presence of automatic (implantable) cardiac defibrillator; Z99.2 Dependence on renal dialysis; Z79.82 Long term (current) use of aspirin; Z79.899 Other long term (current) drug therapy; Z79.4 Long term (current) use of insulin
CPT/HCPCS: 36415; 71045; 76937; 80048; 80053; 80061; 80305; 81003; 82962; 83036; 83605; 83735; 83880; 84100; 84145; 84439; 84443; 84484; 85025; 86705; 86709; 86803; 87340; 87804; 93005; 93306; 93970; 94640; 97110; 97162; 97166; 97530; 97535; 99291; C1725; C9113; C9803; J1160; J1815; J2370; J2543; J3370; J3430; J3490; J7030; J7040; J7060; U0003; U0005; A4315

== ENCOUNTER 2021-06-28 07:01 | Emergency (ER) | payer MEDICARE, MEDICAID ==
[~2021-06-28] VITALS: Ht 167.6 cm; Wt 77.1 kg
[~2021-06-28 07:01] MED LIST changes: -COR3 PO; -SACU1TAB4 PO
[2021-06-28] MEDS ORDERED: ETOMIDATE 2MG/ML 10ML VIAL IV ONE (08:24)
[2021-06-28] MEDS ORDERED: SUCCINYLCHOLINE CHLORIDE 200MG/10ML IV ONE (08:24)
[2021-06-28] MEDS ORDERED: CALCIUM CHLORIDE 1GM/10ML SYR IV ONE (08:27)
[2021-06-28] MEDS ORDERED: SODIUM BICARBONATE 8.4% 1 MEQ/ML 50ML SYR IV ONE (08:27)
[2021-06-28] MEDS ORDERED: DEXTROSE 50% WATER 50ML SYRINGE IV ONE (08:27)
[2021-06-28] MEDS ORDERED: EPINEPHRINE 0.1MG/ML (1:10,000) 10ML SYR ONE (08:27)
[2021-06-28 09:01] LABS: BASOPHILS % 0.4 % (0.0-2.0); EOSINOPHILS % 0.4 % (0.0-5.0); HEMATOCRIT. 37.5 % (42.0-52.0); HEMOGLOBIN. 12.1 g/dL (14.0-18.0); MEAN CORPUSCULAR HEMOGLOBIN 33.8 pg (28.0-32.0); MEAN CORPUSCULAR VOLUME 104.9 fL (80.0-94.0); MEAN PLATELET VOLUME 9.5 fl (7.4-10.4); MONOCYTES % 12.6 % (2.0-8.0); NEUTROPHILS % 72.6 % (40.0-76.0); PLATELET 139 x1000/uL (130-400); RED BLOOD CELL COUNT 3.57 mill/uL (4.7-6.1); RED CELL DISTRIBUTION WIDTH 20.7 % (11.6-14.6)
[2021-06-28 09:04] LABS: CHLORIDE 103 mEq/L (98-107)
[2021-06-28 09:14] LABS: INR 1.5; PROTHROMBIN TIME 15.2 sec (9.6-11.0)
[2021-06-28] MEDS ORDERED: AMIODARONE HCL 150 MG in DEXT 5% WATER 100 ML IV ONE (09:15)
[2021-06-28] MEDS ORDERED: PIPERACILLIN/TAZ 3.375G PREMIX 50 ML IV ONE (09:15)
[2021-06-28] MEDS ORDERED: VANCOMYCIN 1 G PREMIX 200 ML IV ONE (09:15)
[2021-06-28 09:26] LABS: BG BASE EXCESS 2.8 mmol/L (-2.0-2.0); BG CARBOXYHEMOGLOBIN 0.6 % (0.5-1.5); BG DEOXYHEMOGLOBIN 0.1 % (0.0-5.0); BG FRACTION INSPIRED OXYGEN 100; BG HCO3 ACT 26.7 mmol/L (22.0-26.0); BG METHEMOGLOBIN 0.4 % (0.0-1.5); BG OXYGEN SATURATION 99.9 % (92.0-98.5); BG OXYHEMOGLOBIN 98.9 % (94.0-97.0); BG PCO2 38.9 mmHg (35.0-45.0); BG PH 7.455 (7.350-7.450); BG PO2 299.3 mmHg (75.0-100.0); BG SAMPLE SITE LEFT BRACHIAL; BG TOTAL HEMOGLOBIN 12.5 g/dL (12.0-18.0); BG VENT MODE MASK - NRB
[2021-06-28] MEDS ORDERED: SODIUM CHLORIDE 0.9% 1,000 ML IV ONE (10:00)
[2021-06-28] MEDS ORDERED: ACETAMINOPHEN 325MG TABLET PO PRN (13:45)
[2021-06-28] MEDS ORDERED: ONDANSETRON HCL 4MG/2ML INJ IV PRN (13:45)
[2021-06-28] MEDS ORDERED: AZITHROMYCIN 500 MG in DEXT 5% WATER 250 ML IV SCH (13:45)
[2021-06-28] MEDS ORDERED: CEFTRIAXONE 1 G PREMIX 50 ML IV SCH (14:00)
[2021-06-28 15:25] LABS: HEPATITIS B SURFACE ANTIGEN NEGATIVE
[2021-06-28 15:40] VITALS: BP 96/64
[2021-06-28] MEDS ORDERED: DIGOXIN 500MCG/2ML AMP IV NR (15:45)
[2021-06-28] MEDS ORDERED: MIDAZOLAM HCL 2 MG/2 ML VIAL ONE (16:08)
[2021-06-28] MEDS ORDERED: NOREPINEPHRINE 8MG/250ML PMX 250 ML IV ONE (16:19)
[2021-06-28] MEDS ORDERED: WARFARIN SODIUM 2MG TABLET PO NR (18:00)
[2021-06-28] MEDS ORDERED: CARVEDILOL 3.125 MG TABLET PO SCH (21:00)
== END 2021-06-28 18:45 ==
LOC: ER 07:30 → ENRESERV 14:42 → CANRESERV 14:42 → EDBEDREQ 15:02 → EDBEDREQTM 15:02 → ENRESERV 15:40 → CANRESERV 15:40 → ER 18:45 → CANBEDREQ 21:30
DX: I13.2 Hypertensive heart and chronic kidney disease with heart failure and with stage 5 chronic kidney disease, or end stage renal disease (principal); J96.21 Acute and chronic respiratory failure with hypoxia; I50.23 Acute on chronic systolic (congestive) heart failure; I46.9 Cardiac arrest, cause unspecified; I48.91 Unspecified atrial fibrillation; E11.22 Type 2 diabetes mellitus with diabetic chronic kidney disease; N18.6 End stage renal disease; I42.9 Cardiomyopathy, unspecified; I25.10 Atherosclerotic heart disease of native coronary artery without angina pectoris; E03.9 Hypothyroidism, unspecified; I27.21 Secondary pulmonary arterial hypertension; R18.8 Other ascites; J90 Pleural effusion, not elsewhere classified; E44.1 Mild protein-calorie malnutrition; D63.1 Anemia in chronic kidney disease; Z68.27 Body mass index [BMI] 27.0-27.9, adult; Z99.81 Dependence on supplemental oxygen; Z20.822 Contact with and (suspected) exposure to COVID-19; Z95.0 Presence of cardiac pacemaker; Z99.2 Dependence on renal dialysis; Z79.01 Long term (current) use of anticoagulants; Z79.82 Long term (current) use of aspirin; Z79.4 Long term (current) use of insulin
CPT/HCPCS: 31500; 36415; 36556; 36600; 71045; 74176; 80053; 82375; 82805; 82962; 83605; 83880; 84145; 84484; 85025; 85610; 86705; 86709; 86803; 87040; 87340; 87426; 87804; 93005; 96365; 96366; 96367; 96368; 99291; J0282; J0330; J0456; J0696; J2543; J3370; J3490; J7030; J7040; J7060; J2250